=== PATIENT | female | born 1995 | race Caucasian/White ===

== ENCOUNTER → 2024-08-08 10:21 | Outpatient (BNVA) | payer BC, SELFPAY | PROVIDERS: PCP Nurse Practitioner Family; Referring Provider Registered Nurse; Visit Provider Internal Medicine | DX: E07.9 Disorder of thyroid, unspecified (principal); E04.1 Nontoxic single thyroid nodule; E06.3 Autoimmune thyroiditis | CPT/HCPCS: 36415; 84439; 84443 ==

== ENCOUNTER 2024-10-11 07:12 | Outpatient (CLI) | payer BC, SELFPAY ==
--- NOTE | 2024-10-11 07:15 | US_ITS ---
WS: [id number] THYROID ULTRASOUND HISTORY: thyroid nodule COMPARISON: None available. Right lobe: 1.5 cm x 1.6 cm x 5.6 cm (w x ap x l). Volume: 6.5 cm3. Slightly enlarged, heterogeneous thyroid. There are a few nodules scattered throughout the thyroid. M ild increased vascularity. Scattered pseudo nodules associated with Dina's. Left lobe: 1.8 cm x 1.3 cm x 4.1 cm (w x ap x l). Volume: 4.6 cm3. Heterogeneous gland with mild enlargement. No increased vascularity. Isthmus: 0.2 cm. US/US thyroid [id number] IMPRESSION: 1. Heterogeneous and slightly enlarged thyroid gland with small smooth pseudo nodules. This is typically seen with Dina's. 2. No discrete nodule for which biopsy should be recommended or followed.
== END 2024-10-11 07:13 | disposition home or self-care (01) ==
LOC: RAD 07:14
PROVIDERS: PCP Nurse Practitioner Family; Visit Provider Internal Medicine
DX: E04.9 Nontoxic goiter, unspecified (principal)
CPT/HCPCS: 76536

== ENCOUNTER 2024-10-31 08:55 | Outpatient (CLI) | payer BC, SELFPAY ==
[2024-10-31 10:35] LABS: Free T4 Free Thyroxine 1.05 ng/dL (0.82-1.77); Thyroid Stimulating Hormone 3.16 uIU/mL (0.27-4.20)
== END 2024-10-31 08:56 | disposition home or self-care (01) ==
LOC: LAB 08:58
PROVIDERS: PCP Nurse Practitioner Family; Visit Provider Internal Medicine
DX: E07.9 Disorder of thyroid, unspecified (principal)
CPT/HCPCS: 36415; 84439; 84443